=== PATIENT | female | born 1960 | race African-American/Black ===

== ENCOUNTER 2024-05-09 11:40 | Emergency (ER) | payer SELFPAY ==
[~2024-05-09] VITALS: Ht 175.3 cm; Wt 103.8 kg
--- NOTE | 2024-05-09 12:04 | ED.PDOC ---
History of Present Illness HPI Comments 63 year old female presents to the ED with a chief complaint of neck pain s/p fall onset 2 days. Patient states she was in her backyard when she tripped, fell, landed on RT side, hit her head on a brick wall. Since then, patient has been experiencing RT side neck pain radiates to head. She has taken Ibuprofen, applied iced pack with slight improvement of pain, states pain worsens with touch, movement of neck. PMHx HTN, Gout. Denies LOC, dizziness, blurry vision, chest pain, shortness of breath, nausea, vomiting, diarrhea, fever. No other symptoms or modifying factors present at this time. Time Seen by MD: 11:51 Reviewed Notes: Nurses Notes, Medications, Allergies Allergies: Coded Allergies: NO KNOWN ALLERGIES (Unverified , 05/09/24) Information Source: Patient Mode of Arrival: Ambulatory Severity: Moderate Timing: Days Duration: Since onset Prehospital treatment: Pain Meds Past Medical History PAST MEDICAL HISTORY: Gout, HTN Surgical History: Appendectomy, Hysterectomy, Tubal Ligation OFFICE ADMINISTRATION INSTRUCTOR History: No Pertinent OFFICE ADMINISTRATION INSTRUCTOR History Family History Family History: Family hx of Cancer Social History Smoker: Non-Smoker Alcohol: Occasionally Drugs: Marijuana Lives In: Home Constitutional: denies: chills, diaphoresis, fatigue, fever, malaise, sweats, weakness, others EENTM: denies: blurred vision, double vision, ear bleeding, ear discharge, ear drainage, ear pain, ear ringing, eye pain, eye redness, hearing loss, mouth pain, mouth swelling, nasal discharge, nose bleeding, nose congestion, nose pain, photophobia, tearing, throat pain, throat swelling, voice changes, others Respiratory: denies: cough, hemoptysis, orthopnea, SOB at rest, shortness of breath, SOB with excertion, stridor, wheezing, others Cardiovascular: denies: chest pain, dizzy spells, diaphoresis, Dyspnea on exertion, edema, irregular heart beat, left arm pain, lightheadedness, palpitations, PND, syncope, others Gastrointestinal: denies: abdomen distended, abdominal pain, blood streaked bowels, constipated, diarrhea, dysphagia, difficulty swallowing, hematemesis, melena, nausea, poor appetite, poor fluid intake, rectal bleeding, rectal pain, vomiting, others Genitourinary: denies: abnormal vagina bleeding, burning, dyspareunia, dysuria, flank pain, frequency, hematuria, incontinence, pain, , vagina discharge, urgency, others Neurological: reports: headache; denies: dizziness, fainting, left sided numbness, left sided weakness, numbness, paresthesia, pre-existing deficit, right sided numbness, right sided weakness, seizure, speech problems, tingling, tremors, weakness, others Musculoskeletal: reports: neck pain (RT); denies: back pain, gout, joint pain, joint swelling, muscle pain, muscle stiffness, others Integumetry: denies: bruises, change in color, change in hair/nails, dryness, laceration, lesions, lumps, rash, wounds, others Allergic/Immunocompromised: denies: Difficulty Healing, Frequent Infections, Hives, Itching, others Hematologic/Lymphatic: denies: anemia, blood clots, easy bleeding, easy bruising, swollen glands, others Endocrine: denies: excessive hunger, excessive sweating, excessive thirst, excessive urination, flushing, intolerance to cold, intolerance to heat, unexplained weight gain, unexplained weight loss, others Psychiatric: denies: anxiety, bipolar disorder, depression, hopeless, panic disorder, schizophrenia, sleepless, suicidal, others All Other Systems: Reviewed and Negative Physical Exam General Appearance: No Apparent Distress HEENT: Normal ENT Inspection, Pharynx Normal, TMs Normal Neck: Tender Lateral (Mild tenderness to the right neck area with limited motion) Respiratory: Chest Non-Tender, Lungs Clear, No Accessory Muscle Use, No Respiratory Distress, Normal Breath Sounds Cardiovascular: No Edema, No JVD, No Murmur, No Gallop, Normal Peripheral Pulses, Regular Rate/Rhythm Breast Exam: Deferred Gastrointestinal: No Organomegaly, Non Tender, No Pulsatile Mass, Normal Bowel Sounds, Soft Genitalia: Deferred Pelvic: Deferred Rectal: Deferred Extremities: No calf tenderness, Normal capillary refill, Normal inspection, Normal range of motion, Non-tender, No pedal edema Musculoskeletal : Apperance: Normal Neurologic: Alert, provider relations manager II-XII nml as Tested, No Motor Deficits, Normal Affect, Normal Mood, No Sensory Deficits Cerebellar Function: Normal Reflexes: Normal Skin: Dry, Normal Color, Warm Lymphatic: No Adenopathy Was a procedure done? Was a procedure done?: No Differential Dx Considerations may include: Fracture, strain, contusion X-Ray, Labs, Meds, VS Vital Signs Date Time Temp Pulse Resp B/P (MAP) Pulse Ox O2 Delivery O2 Flow Rate FiO2 05/09/24 12:44 92 20 97 Room Air 05/09/24 12:44 97.8 92 20 137/65 (89) 97 97.8 05/09/24 11:59 97.8 81 16 132/64 (86) 9 97.8 Current Medications Medications (Trade) Dose Ordered Sig/Candi Route Start Time Stop Time Status Last Admin Tramadol HCl (Ultram) 50 mg ONCE ONCE PO 05/09/24 12:00 05/09/24 12:01 DC 05/09/24 12:40 PROCEDURE(s): CERV2 - CERVICAL SPINE 3V Impression: 1. No acute osseous abnormality. 2. Straightening of the cervical lordosis which may be positional versus muscle spasm. At this time, the patient was given tramadol 50 mg by mouth The patient was being discharged The patient will return to the emergency department's condition worsens. The patient understands and agrees with the management. Images Reviewed?: Images reviewed and evaluated by me Time of 1ST Reevaluation: 12:21 Reevaluation 1ST: Unchanged Patient Education/Counseling: Diagnosis, Treatment, Prognosis, Need For Follow Up Family Education/Counseling: No Family Present Departure 1 Departure Time of Disposition: 14:03 Impression: Primary Impression: History of fall Additional Impression: Neck strain Qualified Codes: S16.1XXA - Strain of muscle, fascia and tendon at neck level, initial encounter Disposition: HOME / SELF CARE / HOMELESS Condition: Fair Discharged With: Self Critical Care Note Critical Care Time?: No Stability Stability form required: No Heart Score Heart Score: Heart Score Response (Comments) Value History N/A 0 EKG N/A 0 Age N/A 0 Risk Factors N/A 0 Troponin N/A 0 Total 0 I personally scribed for OSMEL GUEVARA MD ([email or web address]) on 05/09/24 at 12:04. Electronically submitted by Zahra Servin ([email or web address]). I personally scribed for OSMEL GUEVARA MD ([email or web address]) on 05/09/24 at 13:12. Electronically submitted by Zahra Servin ([email or web address]). OSMEL GUEVARA MD May 09, 2024 12:04
[2024-05-09] MEDS: traMADol HCL 50 MG TAB PO ONE (12:40)
[2024-05-09 12:44] VITALS: BP 137/65; PULSE 92; RESP 20; TEMP 97.8; O2SAT 97
--- NOTE | 2024-05-09 13:05 | DVH ---
EXAM: XY CERVICAL SPINE 3V INDICATION: trauma/fall COMPARISON: None TECHNIQUE: 5 views of the cervical spine were obtained. Findings: There is no evidence of an acute fracture, spondylolysis, or spondylolisthesis. [id number] spon dylosis. The vertebral body heights and disc spaces are well-maintained. Straightening of the cervical lordosi s. No blastic or lytic lesions are appreciated. No radiopaque foreign bodies. No superficial soft tissue abnormalities. Impression: 1. No acute osseous abnormality. 2. Straightening of the cervical lordosis which may be positional versus muscle spasm.
== END 2024-05-09 14:08 | disposition home or self-care (01) ==
LOC: ER 11:40
DX: S16.1XXA Strain of muscle, fascia and tendon at neck level, initial encounter (principal); I10 Essential (primary) hypertension; M10.9 Gout, unspecified; Z90.49 Acquired absence of other specified parts of digestive tract; Z90.710 Acquired absence of both cervix and uterus; W01.0XXA Fall on same level from slipping, tripping and stumbling without subsequent striking against object, initial encounter; Y93.89 Activity, other specified; Y92.89 Other specified places as the place of occurrence of the external cause; Y99.8 Other external cause status
CPT/HCPCS: 72040